=== PATIENT | male | born 2000 | race Caucasian/White ===

== ENCOUNTER 2022-11-14 22:18 | Inpatient (IN) | payer OTHER ==
[~2022-11-14] VITALS: Ht 177.8 cm; Wt 56.7 kg
[2022-11-18] MEDS ORDERED: HUMALOG100 UNIT/2 SUBCUTANEO ×2 (20:33→20:41)
== END 2022-11-18 17:10 | disposition home or self-care (01) | DRG 639 ==
LOC: ER 22:18 → MEDJ 11-15 12:17 → ICU-2 11-15 12:17 → SEC-K 11-15 15:44 → MEDJ 11-15 16:02 → SEC-K 11-15 16:05 → MEDJ 11-15 16:07
PROVIDERS: General Practice; ADMIT Internal Medicine; ATTEND Internal Medicine
DX: E10.10 Type 1 diabetes mellitus with ketoacidosis without coma (principal); E86.0 Dehydration; E78.5 Hyperlipidemia, unspecified; Z79.4 Long term (current) use of insulin